=== PATIENT | female | born 1955 | race Caucasian/White ===

== ENCOUNTER 2024-02-07 16:49 | Outpatient (CLI) | payer OTHER, SELFPAY ==
--- NOTE | ~2024-02-07 | XR_ITS ---
EXAMINATION: XR_CERV2-3V_CR DATE: 02/07/2024 17:04 INDICATION: Spondylosis without myelopathy or radiculopathy. TECHNIQUE: 3 views of cervical spine were obtained. COMPARISON: None. FINDINGS: There is 7 degrees dextrocurvature of cervical spine. There is mild kyphosis of cervical sp ine. There is 2 mm anterolisthesis of C7 on T1. Vertebral body heights are normal. There is healed in terbody fusion at C5-C6. There is severely decreased disc height at C3-C4, C4-C5, C6-C7, and C7-T1. T here is multilevel severe facet joint osteoarthritis. There is mild central canal stenosis at C3-C4, C4-C5, C6-C7, and C7-T1. No prevertebral soft tissue swelling. IMPRESSION: 1. Severe cervical spondylosis. 2. Anterior fusion at C5-C6. Reviewed, dictated and finalized at location A.
== END 2024-02-07 16:50 | disposition home or self-care (01) ==
LOC: ANHIMG 16:51
PROVIDERS: PCP Family Medicine; Visit Provider Neurological Surgery
DX: M47.812 Spondylosis without myelopathy or radiculopathy, cervical region (principal); Z98.1 Arthrodesis status
CPT/HCPCS: 72040

== ENCOUNTER 2024-03-12 12:39 | Outpatient (CLI) | payer OTHER, SELFPAY ==
--- NOTE | 2024-03-12 12:48 | ECG_ITS ---
Test Date: 2024-03-12 13:08:09 Measurements Intervals [place] Rate: 56 P: 48 NE: 146 QRS: 75 QRSD: 82 T: 40 QT: 421 QTc: 410 Interpretive Statements SINUS BRADYCARDIA POSSIBLE RIGHT VENTRICULAR CONDUCTION DELAY BORDERLINE ST ABNORMALITY- INFERIOR LEADS BASELINE ARTIFACT- I, II, III, AVR, AVL, AVF, V1-V6 BORDERLINE ECG No previous ECG available for comparison Electronically Signed On 03-12-2024 13:50:29 BANKRUPTCY ASSISTANT by Shaw White D.O.
[2024-03-12 14:05] LABS: Hematocrit 39.6 % (37.0-47.0); Hemoglobin 13.2 g/dL (12.0-15.0); Mean Corpuscular HGB Conc 33.3 g/dl (32-36); Mean Corpuscular Hemoglobin 31.4 pg (26-34); Mean Corpuscular Volume 94.1 fl (80-100); Mean Platelet Volume 11.4 fl (7.4-10.4); Platelet Count Result 227 k/mm3 (150-375); Red Blood Count 4.21 M/mm3 (4.2-5.4); Red Cell Distribution Width 13.4 % (11.5-14.5); White Blood Count 7.9 K/mm3 (4.5-10.0)
[2024-03-12 14:16] LABS: Anion Gap 6 mmol/L (4-12); Blood Urea Nitrogen 9 mg/dL (7-17); Calcium 9.2 mg/dL (8.4-10.2); Carbon Dioxide 34 mmol/L (22-30); Chloride 99 mmol/L (98-107); Estimated Glomerular Filt Rate > 60; Glucose 96 mg/dL (65-110); Potassium 4.2 mmol/L (3.4-5.0); Sodium 139 mmol/L (137-145)
[2024-03-12 14:17] LABS: Prothrombin Time 13.3 Seconds (11.1-14.7)
[2024-03-12 14:22] LABS: Add Urine Microscopic? YES; Appearance Urine Clear (Clear); Bacteria Urine None Seen /hpf; Bilirubin Urine Negative (Negative); Blood Urine Negative (Negative); Color Urine Yellow (Yellow); Glucose Urine UA Negative (Negative); Ketones Urine Negative (Negative); Leukocyte Esterase Ur 2+ LEU/UL (Negative); Need Manual Microscopic Reviewed; Nitrate Urine Negative (Negative); Non Pathogenic Casts 0-2; Protein Urine Negative (Negative); RBC Urine 0-2 /hpf (0-2); Specific Grav Ur 1.004 (1.001-1.035); Squamous Epithelial Cell Urine None Seen /hpf (Few); Urobilinogen Urine 0.2 mg/dL (<2.0); WBC Urine 0-5 /hpf (0-3); pH Urine 7.5 (5.0-9.0)
== END 2024-03-12 12:40 | disposition home or self-care (01) ==
LOC: ANHSURGERY 12:44
PROVIDERS: PCP Family Medicine; Visit Provider Neurological Surgery
DX: Z01.818 Encounter for other preprocedural examination (principal); M47.812 Spondylosis without myelopathy or radiculopathy, cervical region; I10 Essential (primary) hypertension; R00.1 Bradycardia, unspecified; R94.31 Abnormal electrocardiogram [ECG] [EKG]
CPT/HCPCS: 36415; 80048; 81001; 85027; 85610; 85730; 86850; 86900; 86901; 87086; 93005

== ENCOUNTER 2024-03-17 03:27 | Day surgery (SDC) | payer OTHER, SELFPAY ==
--- NOTE | 2024-03-06 11:55 | PC.NURSE ---
Report to the Outpatient Waiting Room, entrance under the green pavilion located off [facility], at time _8:30 AM on date 03/17/24 . Planned Procedure Time: _10:30 AM .? Time changes happen often and if your time is changed the preop area will call you the afternoon before. - You and your visitor will be asked to self-screen and do not enter if you have any COVID symptoms. Please call surgeon if you need to reschedule. - A mask is optional within the hospital at this time. Patients may have clear liquids (water, carbonated beverages, clear teas, apple juice) until 3 hours prior to surgery( 7:30 AM) with a maximum of 20 ounces. - No food from midnight until time of surgery and no smoking - Infants may have breast milk until 4 hours before surgery, formula 6 hours prior to surgery. - Children will be allowed to drink immediately following surgery.? If applicable, please bring a bottle or sippy cup to assist with drinking. Juice, water, soda, and popsicles are readily available.? For infants on formula, please bring formula the day of surgery.? Pacifiers are allowed. Take only the following medications with a SIP of water on the morning of surgery: ATENOLOL,HYDROCODONE IF NEEDED FOR PAIN DO NOT STOP ANY OF YOUR OTHER PRESCRIPTION MEDICATIONS PRIOR TO SURGERY EXCEPT THE FOLLOWING Medications to discontinue per physician _ASPIRIN PER DR SANTOS . HOLD ALL VITAMINS AND SUPPLEMENTS 3 DAYS PRE OP.LAST DOSE03/13/24 Please no make-up, nail ugandan, hairspray, perfume, deodorant, or body powder the day of surgery.? No jewelry (including any body piercings) or valuables the day of surgery, leave them at home.? Please take a shower or bath the night before, or the morning of, surgery with an antibacterial soap.? Wear comfortable, loose fitting clothing.? Children are encouraged to wear pajamas. - Jewelry must be removed prior to entering the operating room.? Rings and piercings that are not removed may be cut off. - The hospital will not accept responsibility for valuables.? - Please leave all valuables, including medications, at home the day of surgery. If you are going home after surgery, a licensed funeral car driver must drive you home.? - NO public transportation without another adult if you receive anesthesia. - We recommend that an adult stay with you for 24 hours following discharge. - We also recommend that you do not drive, make important decision, drink alcoholic beverages, or take any drugs that were not prescribed by your health care provider for at least 24 hours after your discharge time Follow any additional instructions given to you from your surgeon. Telephone instructions given to __PATIENT and asked if any additional questions and then verbalized understanding. Patient advised to call surgeon office or pre surgery nurse liaison [phone] if any additional questions.
[2024-03-06 12:07] VITALS: BMI 23.4
[2024-03-17] VITALS (16 sets, daily range): BP systolic 112–157; BP diastolic 44–81; PULSE 55–73; RESP 12–20; TEMP 36.2–36.6; O2SAT 93–100
--- NOTE | ~2024-03-17 | XR_ITS ---
EXAMINATION: XR fluoroscopy no charge DATE: 03/17/2024 13:00 INDICATION: C3-C4 and C4-C5 anterior cervical discectomy and fusion TECHNIQUE: A single lateral fluoroscopic image of the cervical spine was obtained during procedure pe rformed by Dr. Dumont. Radiologist was not present for the imaging or procedure. The amount of fluo roscopy time used during this procedure was 0.1 minutes. COMPARISON: 02/07/2024 FINDINGS: Line C3-C4 and C4-C5 discectomies with interbody bone grafting with bone graft cages and an terior plate-screw fixation spanning both levels. There is a likely developmental anterior fusion at C5-C6. Likely endotracheal tube extends from the oral cavity into the lower cervical trachea and beyo nd the inferior margin of the byreo-on-jewg. Likely capture probe in the nasopharynx. IMPRESSION: 1. Fluoroscopy utilized during instrumented C3-C5 anterior spinal fusion. See procedure note for furt her detail. Reviewed, dictated and finalized at location B. TICS TEACHER IMPRESSION: 1. Fluoroscopy utilized during instrumented C3-C5 anterior spinal fusion. See p tracie note for further detail.
[2024-03-17] MEDS: LACTATED RINGERS 1,000 ML 30 ML IV CONT ×2 (09:00→13:10)
--- NOTE | 2024-03-17 10:48 | P.HP_ITS ---
H&P: HPI History of Present Illness Date/Time: 03/17/24 10:48 Chief Complaint: Neck and arm pain Narrative: Samanta is a 68-year-old female who has past medical history significant for a C5- 6 anterior cervical diskectomy and fusion done in the . She did well after that operation. She now has several year history of progressive pain in her neck radiating into her head and into her left upper extremity but only proximally. This discomfort is with her at all times seems to be worse with activity that involves the neck or upper extremities. She does not report specific muscle group weakness or dermatomal numbness. She has undergone an injection in her cervical spine which was not helpful. She has also participated in physical therapy which was not helpful. She is now limited, distracted and debilitated by her discomfort which times is quite severe. She is here to discuss definitive management of her problem. Review of Systems Review of Systems: All systems reviewed & are unremarkable except as noted in HPI and below Denies chills, Denies fever, Denies weight gain and Denies weight loss Eyes Denies change in vision and Denies diplopia ENT Denies disequilibrium Card Denies chest pain and Denies dyspnea Resp Denies cough and Denies dyspnea GI Denies abdominal pain, Denies change in bowel habits, Denies fecal incontinence and Denies vomiting Denies hematuria, Denies oliguria, Denies difficulty urinating, Denies dysuria, Denies urinary frequency, Denies urinary hesitancy, Denies urinary incontinence and Denies urinary urgency Musc Reports as per HPI Skin/ Breast Reports system reviewed and no additional complaints, except as documented Neuro Reports as per HPIPsych Reports no additional complaints, Denies depression and Denies hopelessness Endo Reports no additional complaints and Denies polyuria Stiven/ Lymph Reports no additional complaints Aller/ Immun Reports no additional complaints [facility] Social History Social History (Reviewed 01/21/24 @ 13:30 by Vane Pratt [facility]) Years smoked: 7 Smoking status: Former smoker Tobacco type: cigarettes Smoking end date: 05/06/89 Alcohol intake: never Substance use: never Substance use type: does not use Do You Feel Safe in your Home?: Yes Lack of Transportation: No Lack of Food: Never True Current Housing: I Have Housing Concerned About Future Housing: No Difficulty Paying Gas/Electric Bills: No Difficulty Paying for Meds: No Currently Unemployed: No Education: High School Diploma/GED Difficulty w/ Childcare or Family Care: No Living arrangements: alone Spiritual care concerns: No Meds Home Medications and Allergies Home Medications Medication Instructions Recorded Confirmed Type alendronate 70 mg tablet 70 mg PO WEEKLY 01/21/24 03/17/24 History aspirin 81 mg tablet,delayed 81 mg PO DAILY 01/21/24 03/06/24 History release (Adult Low Dose Aspirin) atenolol 50 mg tablet 50 mg PO DAILY 01/21/24 03/06/24 History atorvastatin 40 mg tablet 40 mg PO DAILY 01/21/24 03/06/24 History calcium carbonate-vitamin D3 500 1 tablet PO DAILY 01/21/24 03/17/24 History mg(1,250 mg)-600 unit chewable tablet chlorthalidone 25 mg tablet 25 mg PO DAILY 01/21/24 03/17/24 History famotidine 40 mg tablet 40 mg PO DAILY 01/21/24 03/17/24 History hydrocodone 10 mg-acetaminophen 1 tablet PO Q8H PRN Pain 01/21/24 03/17/24 History 325 mg tablet losartan 25 mg tablet 25 mg PO HS 01/21/24 03/17/24 History potassium chloride 20 mEq 20 meq PO DAILY 01/21/24 03/17/24 History tablet,extended release(part/cryst) vitamin no.180-ferrous 1 tablet PO DAILY 01/21/24 03/17/24 History fumarate 27 mg-folic acid 1 mg tablet ( Plus Vitamin-Mineral) rizatriptan 10 mg disintegrating 10 mg PO PRN PRN Headache 01/21/24 03/17/24 History tablet tizanidine 2 mg capsule 2 mg PO TID PRN MUSCLE RELAXER 01/21/24 03/06/24 History zolpidem 10 mg tablet 10 mg PO QHS 01/21/24 03/17/24 History Allergies Allergy/AdvReac Type Severity Reaction Status Date / Time ketorolac AdvReac Intermediate Palpitation Verified 03/06/24 11:41 s sumatriptan AdvReac Unknown Palpitation Verified 03/06/24 11:41 s gabapentin AdvReac Swelling Verified 03/06/24 11:42 Vital Signs Vital Signs - 24 hr 03/17/24 09:11 Temperature 97.3 F L Pulse Rate 55 L Respiratory Rate 20 Blood Pressure 135/47 L Pulse Oximetry 97 Oxygen Delivery Room Air Exam Narrative: General: cooperative, no acute distress, well developed, alert and awake Orientation/Consciousness: oriented to person, oriented to place and oriented to time Constitutional Limitations: no limitations Other: The patient is a normally developed, normal appearing male sitting on the examination table in no acute distress. He is awake, alert, and oriented x3 with good fund of knowledge, recall of events, and fluent speech. HENIA Head: normocephalic and atraumatic Ears: external ears normal Face/Nose/Sinus: Normal external nose present Eyes Eyelids: eyelids normal Pupils: Yes Pupils normal by confrontation EOM: EOMs intact bilaterally Neck General: Yes no meningeal signs, Yes supple and Yes no JVD Resp Effort/Inspection: normal respiratory effort and able to speak in complete sentences Cardio Rate: Yes regular rate GI Inspection: No abdominal distension Musc Other: Examination of the Neck reveals tenderness of the paraspinous musculature and the trapezius muscle left greater than right.. Range of motion of the Neck is limited in extension and left greater than right lateral rotation secondary to discomfort and stiffness.. Skin General: normal color Neuro General: Yes oriented to person, Yes oriented to place, Yes oriented to time, Yes normal cognition and Yes no meningeal signs Cranial Nerves: Yes CN's II-XII intact bilaterally Other: Motor: Strength is normal, 5/5, throughout all muscle groups of the bilateral upper extremities to direct confrontation. Sensory: Sensation is intact to light touch throughout the upper extremities bilaterally. Reflexes: Deep tendon reflexes are difficult to elicit the biceps, triceps and brachioradialis bilaterally. There is no Lynn's. Gait: Gait, station, and transfers are independent and steady for short periods of time and over short distances. Psych Appearance: grossly normal Mental status: Yes mental status grossly normal Mood: congruent mood Affect: Yes normal affect Speech/Movement: Normal speech and movement present Attitude: Yes cooperative Thought Content: Normal thought content Review of studies: MRI of the cervical spine was personally reviewed by me. This demonstrates a C5-6 anterior cervical diskectomy and fusion which appears stable. There is no anterior instrumentation. At C3-4 and C4-5 there is severe left greater than right foraminal stenosis. There is spondylosis at these levels as well. There is spondylosis at C2-3 as well. Assessment and Plan Assessment and plan (1) Foraminal stenosis of cervical region: Code(s): M48.02 - Spinal stenosis, cervical region Status: Acute (2) Cervical spondylosis: Code(s): M47.812 - Spondylosis without myelopathy or radiculopathy, cervical region Status: Acute Plan Samanta is a 68-year-old female with neck and left upper extremity discomfort related to the pathology is C3-4 and C4-5. I have recommended extending her fusion by way of anterior cervical diskectomy and fusion to those levels and described to her that operation, its risks, potential benefits, the operative and postoperative course in detail and answered all her questions personally. We discussed risks including but not limited to permanent neurologic or functional deficit related injury of the trachea, esophagus, carotid artery, jugular vein, recurrent laryngeal nerve, spinal cord or nerve roots, need for reoperation secondary to infection, bleeding, CSF leak, adjacent level disease, recurrent residual pathology, instability, malposition migration of the hardware or nonunion, failure of the procedure to relieve her pain or symptoms, persistent pain, medical complications related anesthesia or surgery, etc.. She indicates understanding and elects to proceed with that operation.
--- NOTE | 2024-03-17 10:50 | WPDHPUPDATE1 ---
History and Physical Update Update Date/Time: 03/17/24 10:50 History and Physical has been reviewed, including an updated exam of the patient. There are NO changes in the patient's condition. Risks, benefits, and alternatives have been discussed and questions answered. Patient agrees to proceed with procedure.
--- NOTE | 2024-03-17 11:16 | WPDANESEPPF ---
Anes - Initial Pre Proc Eval Procedure: Operation Date: 03/17/24 10:30 Proposed Procedures p C3-4 C4-5 Anterior Cervical Discectomy Fusion - Elton Dumont MD Date/Time: 03/17/24 11:16 Surgeon: Elton Dumont MD Pre Op Diagnosis: C3-4 C4-5 Spondylosis, Neuro Foraminal Narrowing Patient Data Age: 68 Gender: F Height: 1.47 m Weight: 50 kg Last Vital Signs Temp 97.3 F L 03/17/24 09:11 Pulse 55 L 03/17/24 09:11 Resp 20 03/17/24 09:11 BP 135/47 L 03/17/24 09:11 Pulse Ox 97 03/17/24 09:11 O2 Del Method Room Air 03/17/24 09:11 Allergies Allergy/AdvReac Type Severity Reaction Status Date / Time ketorolac AdvReac Intermediate Palpitation Verified 03/06/24 11:41 s sumatriptan AdvReac Unknown Palpitation Verified 03/06/24 11:41 s gabapentin AdvReac Swelling Verified 03/06/24 11:42 Home Medications Medication Instructions Recorded Confirmed Type alendronate 70 mg tablet 70 mg PO WEEKLY 01/21/24 03/17/24 History aspirin 81 mg tablet,delayed 81 mg PO DAILY 01/21/24 03/06/24 History release (Adult Low Dose Aspirin) atenolol 50 mg tablet 50 mg PO DAILY 01/21/24 03/06/24 History atorvastatin 40 mg tablet 40 mg PO DAILY 01/21/24 03/06/24 History calcium carbonate-vitamin D3 500 1 tablet PO DAILY 01/21/24 03/17/24 History mg(1,250 mg)-600 unit chewable tablet chlorthalidone 25 mg tablet 25 mg PO DAILY 01/21/24 03/17/24 History famotidine 40 mg tablet 40 mg PO DAILY 01/21/24 03/17/24 History hydrocodone 10 mg-acetaminophen 1 tablet PO Q8H PRN Pain 01/21/24 03/17/24 History 325 mg tablet losartan 25 mg tablet 25 mg PO HS 01/21/24 03/17/24 History potassium chloride 20 mEq 20 meq PO DAILY 01/21/24 03/17/24 History tablet,extended release(part/cryst) vitamin no.180-ferrous 1 tablet PO DAILY 01/21/24 03/17/24 History fumarate 27 mg-folic acid 1 mg tablet ( Plus Vitamin-Mineral) rizatriptan 10 mg disintegrating 10 mg PO PRN PRN Headache 01/21/24 03/17/24 History tablet tizanidine 2 mg capsule 2 mg PO TID PRN MUSCLE RELAXER 01/21/24 03/06/24 History zolpidem 10 mg tablet 10 mg PO QHS 01/21/24 03/17/24 History Patient hx anesthesia problems: none Family hx anesthesia problems: none Results Review: All pre-operative results and documents have been reviewed as part of the pre-operative evaluation. [facility] Social History Social History Years smoked: 7 Smoking status: Former smoker Tobacco type: cigarettes Smoking end date: 05/06/89 Alcohol intake: never Substance use: never Substance use type: does not use Do You Feel Safe in your Home?: Yes Lack of Transportation: No Lack of Food: Never True Current Housing: I Have Housing Concerned About Future Housing: No Difficulty Paying Gas/Electric Bills: No Difficulty Paying for Meds: No Currently Unemployed: No Education: High School Diploma/GED Difficulty w/ Childcare or Family Care: No Living arrangements: alone Spiritual care concerns: No Anes - Eval Final PreProcedure Day of Procedure 03/17/24 11:16 Patient weight: normal Heart: regular rate and rhythm Lungs: clear to auscultation Airway: Mallampati scale class III Neurological: alert and oriented Last oral intake: >/= 8 hours ASA classification: III Emergent: no Anesthetic plan: proceed Anesthesia type and monitoring: general ETT and standard monitoring Results Review: All pre-operative results and documents have been reviewed as part of the pre-operative evaluation. Informed Consent: The patient's anesthetic plan and its attendant risks and benefits were discussed with the patient/family/POA. Questions were solicited and answers provided to the satisfaction of the patient/family/POA.
[2024-03-17] MEDS: ceFAZolin 2 GM/D5W 50 ML 2 GM/50 ML BAG IVPB (11:23)
[2024-03-17] MEDS: LIDO 1%/EPINEPHRINE 1:100,000 50 ML VIAL 10 ML INFILTRATE (12:17)
[2024-03-17] MEDS: fentaNYL CITRATE INJ (*CRX) 100 MCG/2 ML VIAL 25 MCG IV PUSH ×8 (13:28→14:24)
[2024-03-17] MEDS: ONDANSETRON INJ 4 MG/2 ML VIAL IV PUSH ×2 (13:30→15:34)
--- NOTE | 2024-03-17 13:30 | P.OP_ITS ---
Procedure Note - Detailed Date of Procedure 03/17/24 Pre-op Diagnosis C3-4 C4-5 Spondylosis, Neuro Foraminal Narrowing Post-op Diagnosis Same Procedure Performed C3-4 and C4-5 complete diskectomy and bilateral foraminotomy, C3-4 and C4-5 interbody arthrodesis utilizing peek interbody devices, local autograft and I factor, C3-5 anterior cervical plating with locking plate and screws, use of the operating microscope Surgeon Elton Dumont MD Anesthesia General Description of Procedure Patient was brought to the operating room in supine position, was sedated, intubated placed under general anesthesia in routine fashion. The of operation on her neck was examined, marked for incision, prepped and draped in routine sterile fashion. Incision was marked from the midline over the medial aspect of the sternocleidomastoid muscle in curvilinear transverse fashion 3 fingerbreadths above the sternal notch. This area was injected with 0.5% lidocaine with [id number] epinephrine. Intravenous antibiotics given prior to incision. Incision was made with a 10 blade scalpel down to the platysma muscle. The skin was undermined the platysma muscle was divided longitudinally with its fibers using Metzenbaum scissors. A plane was then dissected medial to the sternocleidomastoid muscle and superior to the omohyoid muscle down to the anterior aspect of the spine. A verifying x-rays obtained to verify the level of operation. The longus colli muscle was dissected free of the anterior aspect of spine using Bovie cautery. Shadow [place] retractor system was placed. [place] pins were placed in C3 and C5 and distraction placed over both disc spaces simultaneously. Diskectomy and arthrodesis procedures were performed identically at each level. This was performed by entering the disc space using a 15 blade scalpel cutting along the margin of the bone above and below. A curved curette and pituitary rongeur were used to remove as much cartilaginous endplate and disc material as possible down to the annulus and ligament posteriorly. A Midas Gui drill was used to bur down the endplates to bleeding cortical flat surfaces as well as to begin a bony foraminotomy bilaterally. Under microscopy the annulus and ligament were interrupted using a curved curette and a 2. Kerrison punch was used to remove annulus, ligament, posterior osteophyte and to complete a bony foraminotomy bilaterally. This was done until a nerve hook could be placed out each foramen to confirm lack of compression. The disc spaces were then sized and 6 mm interbody devices were chosen and filled with a mixture of local autograft bone and I factor. These were then tamped into the interspace to 1-2 mm countersink. The anterior osteophytes removed using a Midas Gui drill. Anterior cervical plate was chosen placed in position and secured using 614 x 4 mm anterior screws advanced into the locking mechanism of the plate to hand tightness. Locking mechanism was then engaged with the appropriate screwdriver each screw. A verifying x-rays obtained to verify good position of the instrumentation which was confirmed. The wound was then copiously irrigated with bacitracin irrigation all bleeding stopped with bipolar Bovie cautery Gelfoam thrombin powder. Wound was then closed in layered fashion with 3-0 Vicryl interrupted sutures in the platysma muscle and dermis. The skin was closed with a running 4-0 Monocryl subcuticular stitch and dressed with Dermabond. The patient was allowed to wake up in the operating room was taken to the recovery room in stable condition. There were no immediate complications of this operation. All counts were reported correct at the end of the case. Blood loss was 25 cc. The patient was neurologically at her baseline postoperatively. CPT codes: 95461, 88193, 66025, 90507, 09229 Estimated Blood Loss 25 Complications None Condition Stable Disposition PACU [facility] Billing Surgery - Charge Forward: Surgery Billing
[2024-03-17] MEDS: diphenhydrAMINE HCl INJ 50 MG/ML VIAL 6.25 MG IV PUSH (13:41)
--- NOTE | 2024-03-17 15:20 | ADMGEN ---
This patient, Samanta Reeder, was admitted to Medical Room 244-. Patient/family oriented to hospital policies and general routines including ID bracelet, bed and alarms, visiting hours, pain management, procedures, bathroom and other care routines, personal items, smoking policy, room service/diet, and visiting hours. Information on how to activate the Rapid Response Team has been discussed. Patient/Family are encouraged to report perceived risks to care and to ask questions if they do not understand what they are told or what they should do.
[2024-03-17] MEDS: MORPHINE SULFATE (*CRX) 2 MG/ML INJ IV PUSH ×2 (15:35→20:12)
[2024-03-17] MEDS: KCL 20 MEQ/D5/0.45% SOD CHL 1,000 ML 100 ML IV CONT (15:36)
[2024-03-17] MEDS: HYDROcodone/acetaminophen (*CRX) 10-325 MG TABLET 1 TAB PO ×2 (16:50→20:57)
[2024-03-17] MEDS: LOSARTAN POTASSIUM 25 MG TABLET PO (21:31)
[2024-03-17] MEDS: DOCUSATE SODIUM 100 MG CAPSULE PO (21:31)
[2024-03-17] MEDS: HYDROcodone/acetaminophen (*CRX) 5-325 MG TABLET 1 TAB PO (23:38)
[2024-03-18] MEDS: HYDROcodone/acetaminophen (*CRX) 10-325 MG TABLET 1 TAB PO ×2 (01:22→08:49)
[2024-03-18 02:00] VITALS: BP 119/42; PULSE 62; RESP 16; TEMP 36.3; O2SAT 93
[2024-03-18 05:48] VITALS: BP 117/34; PULSE 60; RESP 20; TEMP 36.2; O2SAT 97
[2024-03-18 08:47] VITALS: PULSE 68
[2024-03-18] MEDS: atenoloL 50 MG TABLET PO (08:47)
[2024-03-18] MEDS: ASPIRIN 81 MG ENTERIC TABLET PO (08:48)
[2024-03-18] MEDS: CALCIUM/VITAMIN D 500 MG/5 MCG (200 I.U.) TABLET PO (08:48)
[2024-03-18] MEDS: DOCUSATE SODIUM 100 MG CAPSULE PO (08:48)
[2024-03-18] MEDS: FAMOTIDINE 20 MG TABLET 40 MG PO (08:48)
[2024-03-18] MEDS: MULTIVIT/MIN/PREN/FOL AC/IRON TABLET 1 TAB PO (08:48)
[2024-03-18] MEDS: POTASSIUM CHLORIDE 20 MEQ ER TABLET PO (08:49)
[2024-03-18] MEDS: ATORVASTATIN 40 MG TABLET PO (08:49)
[2024-03-18] MEDS: CHLORTHALIDONE 25 MG TABLET PO (08:49)
[2024-03-18 10:00] VITALS: BP 142/47; PULSE 67; RESP 18; TEMP 36.5; O2SAT 98
[2024-03-18] MEDS: ONDANSETRON INJ 4 MG/2 ML VIAL IV PUSH (10:44)
[2024-03-18] MEDS: RIZATRIPTAN BENZOATE 10 MG ODT PO (10:47)
[2024-03-18 14:00] VITALS: BP 142/47; PULSE 67; RESP 18; TEMP 36.5; O2SAT 98
--- NOTE | 2024-03-18 16:15 | WPDNEUROSGPN ---
Progress Note: A&P Assessment and Plan (1) Status post cervical arthrodesis: Code(s): Z98.1 - Arthrodesis status Status: Acute Plan -Discharge home today -Follow up with Dr. Dumont as scheduled next month Subjective Date/time seen: 03/18/24 16:15 Interval history: Doing well with some neck pain which is tolerable. Eating without difficulty. Ambulating and voiding independently. She has not noticed the arm pain she had prior to surgery. She would like to go home today. Review of Systems Review of Systems: All systems reviewed & are unremarkable except as noted in HPI and below Exam Narrative: AOx4 Incision c/d/i Full strength in arms and legs Sensation intact to light touch Objective Data Vital Signs Vital Signs: Vital Signs - 24 hr 03/17/24 17:00 03/17/24 20:27 03/18/24 02:00 Temperature 97.7 F 97.9 F 97.3 F L Pulse Rate 65 66 62 Respiratory Rate 16 16 16 Blood Pressure 112/44 L 129/44 L 119/42 L Pulse Oximetry 95 98 93 Oxygen Delivery 03/18/24 05:48 03/18/24 08:47 03/18/24 08:57 Temperature 97.1 F L Pulse Rate 60 68 Respiratory Rate 20 Blood Pressure 117/34 L Pulse Oximetry 97 Oxygen Delivery Room Air 03/18/24 09:06 03/18/24 10:00 03/18/24 14:00 Temperature 97.7 F 97.7 F Pulse Rate 67 67 Respiratory Rate 18 18 Blood Pressure 142/47 H 142/47 H Pulse Oximetry 98 98 Oxygen Delivery Room Air Intake/Output Intake/Output: Intake & Output 03/15/24 03/16/24 03/17/24 03/18/24 23:59 23:59 23:59 23:59 Intake Total 1930 740 Output Total 1100 1100 Balance 830 -360 Meds/Results Medications: Active Medications Generic Name Dose Route Start Last Admin Trade Name Freq PRN Reason Stop Dose Admin Hydrocodone Bitart/Acetaminophen 1 tab 03/17/24 14:47 03/17/24 23:38 Hydrocodone/Acetaminophen (*Crx) 5-325 Mg Tablet PO 1 tab Q4H PRN Administration Mild Pain (1-3) Hydrocodone Bitart/Acetaminophen 1 tab 03/17/24 14:47 03/18/24 08:49 Hydrocodone/Acetaminophen (*Crx) 10-325 Mg Tablet PO 1 tab Q4H PRN Administration Moderate Pain (4-6) Al Hydrox/Mg Hydrox/Simethicone 20 ml 03/17/24 14:47 Mag Hydrox/Al Hydrox/Simeth 30 Ml Udc PO Q4H PRN Indigestion/Heartburn Alendronate Sodium 70 mg 03/22/24 06:30 Alendronate Sodium 70 Mg Tablet PO Bello@0630 [facility] Aspirin 81 mg 03/18/24 09:00 03/18/24 08:48 Aspirin 81 Mg Enteric Tablet PO 81 mg DAILY [facility] Administration Atenolol 50 mg 03/18/24 09:00 03/18/24 08:47 Atenolol 50 Mg Tablet PO 50 mg DAILY [facility] Administration Atorvastatin Calcium 40 mg 03/18/24 09:00 03/18/24 08:49 Atorvastatin 40 Mg Tablet PO 40 mg DAILY [facility] Administration Bisacodyl 10 mg 03/17/24 14:47 Bisacodyl 10 Mg Suppository RECTAL DAILY PRN Constipation Calcium Carbonate 500 mg 03/18/24 09:00 03/18/24 08:48 Calcium/Vitamin D 500 Mg/5 Mcg (200 I.U.) Tablet PO 500 mg DAILY [facility] Administration Chlorthalidone 25 mg 03/18/24 09:00 03/18/24 08:49 Chlorthalidone 25 Mg Tablet PO 25 mg DAILY [facility] Administration Docusate Sodium 100 mg 03/17/24 21:00 03/18/24 08:48 Docusate Sodium 100 Mg Capsule PO 100 mg Q12HR [facility] Administration Famotidine 40 mg 03/18/24 09:00 03/18/24 08:48 Famotidine 20 Mg Tablet PO 40 mg DAILY [facility] Administration Potassium Chloride/Dextrose/Sod Cl 1,000 mls @ 100 mls/hr 03/17/24 14:47 03/17/24 21:00 Kcl 20 Meq/D5/0.45% Sod Chl IV CONT 30 mls/hr .Q10H [facility] Infusion Losartan Potassium 25 mg 03/17/24 21:00 03/17/24 21:31 Losartan Potassium 25 Mg Tablet PO 25 mg HS [facility] Administration Morphine Sulfate 2 mg 03/17/24 14:47 03/17/24 20:12 Morphine Sulfate (*Crx) 2 Mg/Ml Inj IV PUSH 2 mg Q2H PRN Administration Pain Rated 7-10 Ondansetron HCl 4 mg 03/17/24 14:47 03/18/24 10:44 Ondansetron Inj 4 Mg/2 Ml Vial IV PUSH 4 mg Q8H PRN Administration Nausea And Vomiting Potassium Chloride 20 meq 03/18/24 09:00 03/18/24 08:49 Potassium Chloride 20 Meq Er Tablet PO 20 meq DAILY [facility] Administration Vit/Calcium/Iron/Folic Ac 1 tab 03/18/24 09:00 03/18/24 08:48 Multivit/Min/Pren/Fol Ac/Iron Tablet PO 1 tab DAILY [facility] Administration Rizatriptan Benzoate 10 mg 03/17/24 15:24 03/18/24 10:47 Rizatriptan Benzoate 10 Mg Odt PO 10 mg PRN PRN Administration Headache Senna/Docusate Sodium 1 tab 03/17/24 14:47 Senna/Docusate Sodium Tablet PO HS PRN Constipation Zolpidem Tartrate 10 mg 03/17/24 21:00 03/18/24 01:26 Zolpidem Tartrate (*Crx) 5 Mg Tablet PO Not Given QHS [facility] Radiology Results: ITS Impressions Fluoroscopy 03/17/24 13:20 IMPRESSION: 1. Fluoroscopy utilized during instrumented C3-C5 anterior spinal fusion. See procedure note for further detail.
== END 2024-03-18 17:26 | disposition home or self-care (01) ==
LOC: ANHSURGERY 13:42 → ANH2MED 14:54
PROVIDERS: PCP Family Medicine; Visit Provider Neurological Surgery
PROC: (CPT 63030; principal; 2024-03-17 10:30)
DX: M47.812 Spondylosis without myelopathy or radiculopathy, cervical region (principal); M48.02 Spinal stenosis, cervical region; Z87.891 Personal history of nicotine dependence
CPT/HCPCS: 22551; 22552; 22853 ×2; 20936; 97161; 97165; 97530; 97535; 99199; A9270; C1713; J0690; J1100; J1171; J1200; J2003; J2004; J2270; J2405; J2704; J3010; J3480; J7120

== ENCOUNTER 2024-08-09 13:17 | Outpatient (CLI) | payer OTHER, SELFPAY ==
--- NOTE | ~2024-08-09 | MR_ITS ---
MRI of the lumbar spine Clinical History: Radiculopathy Technique: Axial T2-weighted images, and sagittal T1-weighted, T2-weighted, and and T2 fat-sat images were acquired. Findings: There is no fracture or subluxation of the lumbar spine. There is mild dextroscoliosis. No suspicious bone marrow signal abnormality seen. At L1-L2, there is no disc bulge or herniation. No spinal canal stenosis or neural foraminal narrowin g. At L2-L3, there is no disc bulge or herniation. No spinal canal stenosis or neural foraminal narrowin g. At L3-L4, there is mild degenerative disc narrowing. There is minimal disc bulge with advanced facet arthropathy. No central canal stenosis. There is severe left neural foraminal narrowing, and mild rig ht neural foraminal narrowing. At L4-L5, there is mild disc bulge with moderate to advanced facet arthropathy. No central canal sten osis. There is advanced right neural foraminal narrowing, and moderate left neural foraminal narrowin g. At L5-S1, there is mild disc bulge with moderate to advanced facet arthropathy. No central canal sten osis. There is severe right neural foraminal narrowing, and moderate left neural foraminal narrowing. Paravertebral soft tissues are unremarkable. Impression: Moderate degenerative spondylosis, with significant neural foraminal narrowing at L3-L4, L4-L5, L5-S1 . Please see details above. Reviewed, dictated and finalized at [facility]. Impression: Moderate degenerative spondylosis, with significant neural foraminal narrowing at L3-L4, L4-L5, L5-S1. Please see details above.
--- OUTSIDE RECORDS SUMMARY | 2024-08-09 13:22 | XMS_ITS | Encounter Summary ---
Author Organization [facility] Healthcare Address [address] [place] [address] Care Team Providers Care Cnc Operator Programmer Name Role Phone Santos Wang MD Primary Care Provider + Reason for Visit * Reason Onset Date Comments Appointment Request 08/06/2024 Encounter Details Date Type Department Care Team ([facility] Contact Info) Description 08/06/2024 Telephone [facility] Medical Group Primary Care at [address] [place] [address] Santos Wang MD [address] [place] [address] [address] [place] [address] Appointment Request Social History Tobacco Use Types Packs/Day Years Used Date Smoking Tobacco: Former Cigarettes Q uit: 10/10/1990 Smokeless Tobacco: Never Alcohol Use Standard Drinks/Week Comments No 0 (1 standard drink = 0.6 oz pur e alcohol) Social Connection and Isolat ion Panel [NHANES] Answer Date Recorded In a typical week, how many times do you talk on the phone with family, friends, or neighbors? More than three times a week 10/22/2022 How often do you get togethe r with friends or relatives? More than three times a week 10/22/2022 How often do you attend chur ch or nondenominational services? More than 4 times per year 10/22/2022 Do you belong to any clubs o r organizations such as alevism groups, unions, fraternal or athletic groups, or school groups? Yes 10/22/2022 How often do you attend meet ings of the clubs or organizations you belong to? More than 4 times per year 10/22/2022 Are you , , di vorced, , never , or living with a partner? Never 10/22/2022 AUDIT-C Answer Date Recorded Q1: How often do you have a drink containing alcohol? Never 10/01/2023 Q2: How many drinks containi ng alcohol do you have on a typical day when you are drinking? Patient does not drink Q3: How often do you have si x or more drinks on one occasion? Never 10/01/2023 Overall Financial Resource Strain (CARDIA) Answe r Date Recorded How hard is it for you to pa y for the very basics like food, housing, medical care, and heating? Not very hard 10/22/2022 PHQ-2 Answer Date Recorded PHQ-2 Total Score (If total score is 3 or more points, staff should administer the PHQ-9) 0 07/23/2024 PRAPARE - Transportation Answer Date Re corded In the past 12 months, has l ack of transportation kept you from medical appointments or from getting medications? No 10/04 In the past 12 months, has l ack of transportation kept you from meetings, work, or from getting things needed for daily living? No 10/22/2022 Housing Stability Vital Sign Answer Chun e Recorded In the last 12 months, was t here a time when you were not able to pay the mortgage or rent on time? No 10/22/2022 In the last 12 months, how many places have you lived? 1 10/22/2022 In the last 12 months, was t here a time when you did not have a steady place to sleep or slept in a prison (including now)? No 10/22/2022 Personal Safety Answer Date Recorded Have you ever been in or are you currently in a harmful physical or emotional relationship or is someone making you feel afraid or unsafe? Denies 09/23/2023 Comments No Sex and Gender Information Value Date Recorded Sex Assigned at Not on file Legal Sex Female 3:17 PM CLINICAL DATA COORDINATOR Gender Identity Not on file Sexual Orientation Not on file documented as of this encounter Miscellaneous Notes * Telephone Encounter - Isi Dudley MA - 08/07/2024 1:30 PM CDT Lvm. * Telephone Encounter - Iona Miller - 08/06/2024 1:52 PM CDT Appointment Request What visit type does the patient need? Visit Type: Established Patient What is the reason for the visit? discuss increase of her migraines and possible change in treatment What is the reason we were unable to schedule the appointment? Current appointment availability didnot meet patient's need. If applicable, were all members of the patient's PCP care team offered (e.g., nurse practioner(s), physician bilingual legal assistant(s)) ? N/A Additional Comments: [facility]'s first opening was September. She would like to be seen before then. Does message need to be routed? Yes-Action Needed documented in this encounter Plan of Treatment Not on file documented as of this encounter Goals Goal Patient Goal Type Associated Problems Recent Progress Patient-Stated? Author BH-Pain Behavioral Health Improving( 11:33 AM CLINICAL DATA COORDINATOR) Sara Rodriguez, STACEY Note: Patient will establish a comfort-function goal and identify the pain level that will allow the patient to perform desired activities and achieve an acceptable quality of life. documented as of this encounter Visit Diagnoses Not on filedocumented in this encounter Care Teams Cnc Operator Programmer Relationship Specialty Start Date End Date Santos Wang MD [address] [place] [address] PCP - General Family Medicine 07/02/24 documented as of this encounter
--- OUTSIDE RECORDS SUMMARY | 2024-08-09 13:22 | XMS_ITS | Encounter Summary ---
Author Organization [facility] Healthcare Address [address] [place] [address] Care Team Providers Care Design Cell Engineer Name Role Phone Santos Wang MD Primary Care Provider + Encounter Details Date Type Department Care Team (Late Contact Info) Description 07/05/2024 Results Follow-Up [facility] Medical Group Primary Care at [address] [place] [address] Santos Wang MD [address] [place] [address] [address] [place] [address] Social History Tobacco Use Types Packs/Day Years [...] often do you attend chur ch or jehovah's witness services? More than 4 times per year 10/22/2022 Do you belong to any clubs o r organizations such as hinduism groups, unions, fraternal or athletic groups, or [...] points, staff should administer the PHQ-9) 0 07/03/2024 PRAPARE - Transportation Answer Date Re corded [...] place to sleep or slept in a snf (including now)? No 10/22/2022 Personal Safety Answer Date Recorded Have you ever been in or are you currently in a harmful physical or emotional relationship or is someone making you feel afraid or unsafe? Denies 09/23/2023 Comments No Sex and Gender Information Value Date Recorded Sex Assigned at Not on file Legal Sex Female 3:17 PM LINEN TECH Gender Identity Not on file Sexual Orientation Not on file documented as of this encounter Miscellaneous Notes * Result Encounter Note - Isi Dudley MA - 07/14/2024 9:29 AM CDT Sent patient message through [employer]. * Result Encounter Note - Isi Dudley MA - 07/06/2024 9:55 AM CST [facility]. N TECH * Result Encounter Note - Santos Wang MD - 07/05/2024 10:34 AM LINEN TECH Please make a follow-up appointment with patient to discuss her increasing A1c. It is now at 6.3. Diabetes starts at 6.5. This is up from 5.9 which has been stable for the last 2 years. Will look to see her as a follow-up video appointment at her convenience this is not urgent. N TECH documented in this encounter Plan of Treatment Not on file documented as of this encounter Goals Goal Patient Goal Type Associated Problems Recent Progress Patient-Stated? Author BH-Pain Behavioral Health Improving( 11:33 AM LINEN TECH) Sara Rodriguez RN Note: Patient will establish a comfort-function goal and identify the pain level that will allow the patient to perform desired activities and achieve an acceptable quality of life. documented as of this encounter Visit Diagnoses Not on filedocumented in this encounter Care Teams Design Cell Engineer Relationship Specialty Start Date End Date Santos Wang MD [address] [address] PCP - General Family Medicine 07/02/24 documented as of this encounter
--- OUTSIDE RECORDS SUMMARY | 2024-08-09 13:22 | XMS_ITS | Clinical Summary ---
Author Organization [facility] Address [address] [place] [address] Phone Care Team Providers Care Clinical Engineering Manager Name Role Phone Avery Schaefer MD Primary Care Provider [phone] Social History Tobacco Use Types Packs/Day Years Used Date Smoking Tobacco: Never Assessed Comments Unknown Sex and Gender Information Value Date Recorded Sex Assigned at Not on file Legal Sex Female 9:03 PM CDT Gender Identity Not on file Sexual Orientation Not on file Plan of Treatment Not on file Insurance MEDICARE Care Teams Clinical Engineering Manager Relationship Specialty Start Date End Date Avery Schaefer MD [address] [place] [address] [place] [address] PCP - General Family Medicine 04/27/15
--- OUTSIDE RECORDS SUMMARY | 2024-08-09 13:22 | XMS_ITS | Continuity of Care Document ---
Author Organization [facility] Address [address] [place] [address] Phone Care Team Providers Care Fire Hose Curer Name Role Phone Pola Mathew MD Unavailable Unavailable Procedures Procedure Date INJECTION ANESTHETIC AND/OR STERIOD, TRANS EPIDURAL LUMB OR SACRAL,, SINGLE LEVE SURGICAL TRAY LOW OSMOLAR CONTRAST (200 TO 299 MG IODI NE) DEPO-MEDROL 80MG INJECTION ANESTHETIC AND/OR STERIOD, TRANS EPIDURAL LUMB OR SACRAL,, SINGLE LEVE SURGICAL TRAY LOW OSMOLAR CONTRAST (200 TO 299 MG IODI NE) DEPO-MEDROL 80MG X-RAY LUMBAR SPINE, COMPLETE Advance Directives Directive Yes / No Effective Date File Name No Information Encounters Encounter Description Practice Location Reason(s) For Visit Diagnoses Date Provider Providers [facility] [address], [place], [place], [id number], tel:[phone] [facility] No Information Quincy Escalona. [address], [place], [place], [id number], [place]. tel:[phone] Referring Provider: Paul Agrawal MD, [address] [place] [address], [address]. tel:[phone] [facility] [address] [facility], [address], [place], [place], [id number], [place] tel:[phone] [facility] No Information Bridgette Saxena. [address], [place], [place], [id number], [place]. tel:[phone] Referring Provider: Paul Agrawal MD, [address] [place], [address]. tel:[phone] [facility], [address], [place], [place], [id number], [place] tel:[phone] [facility] No Information Radha Escalona. [address] , [place], [place], [id number], [place]. tel:[phone] Referring Provider: Paul Agrawal MD, [address] [place], [address]. tel:[phone] Family History Family Member Type Diagnosis Age At Onset No Information Payers Payer name Insurance type Covered democrat ID Roverto lambert(s) [facility] [id number] Social History Type Description Quantity Date Captured Comments Sex Female Smoking Status No Information Chief Complaint And Reason For Visit No Information Reason For Referral Reason For Referral No Information History Of Present Illness Encounter Date Complaint History Of Prese nt Illness No Information Functional Status Date Functional Assessmen t No Information Instructions Date Instruction Additional Infor mation No Information Assessments Type Assessment Date No Information Patient Care Teams Name Effective Dates (start - stop) Status Members No Information
--- OUTSIDE RECORDS SUMMARY | 2024-08-09 13:23 | XMS_ITS | Clinical Summary ---
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 Recombina nt, Subunit, Adjuvanted, PF, IM (Arexvy) 03/25/2023 Tdap 10/24/2019,02/08/2017,02/02/2015 ZOSTER Recombinant 03/24/2022,10/06/2021 Surgical History Surgery Date Site/Laterality Comments PARTIAL HYSTERECTOMY 05/06/1985 - 05/05/1986 partial hysterectomy NECK SURGERY neck surgery APPENDECTOMY 05/06/1980 - 05/05/1981 Appendectomy SHOULDER ARTHROSCOPY Arthroscopy shoulder HYSTERECTOMY partial 1985 FLUORO GUIDED INJECTION HIP RIGHT 10/09/2022 Right ROTATOR CUFF REPAIR Right Right Shoulder Medical History Medical History Date Comments Hypertension Hypertension Hyperlipidemia Hyperlipidemia Migraine Neck pain Mitral valve prolapse Family History Medical History Relation Name Comments Cancer Brother COPD Father COPD; Migraines Father Heart disease Mother Hypertension Mother Hypertension; Arthritis Other Blood Clot Other Cancer Other Heart disease Other Kidney disease Other Breast cancer Sister Cancer Sister Stroke Sister Relation Name Status Comments Brother Father Mother Other Sister Alive Social History Tobacco Use Types Packs/Day Years Used Date Smoking Tobacco: Former Cigarettes Q uit: 10/10/1990 Smokeless Tobacco: Never Tobacco Cessation:Counseling Given: Not Answered Alcohol Use Standard Drinks/Week Comments No 0 [...] often do you attend chur ch or advent services? More than 4 times per year 10/22/2022 Do you belong to any clubs o r organizations such as jainism groups, unions, fraternal or athletic groups, or [...] place to sleep or slept in a skilled nursing (including now)? No 10/22/2022 Personal Safety Answer Date Recorded Have you ever been in or are you currently in a harmful physical or emotional relationship or is someone making you feel afraid or unsafe? Denies 09/23/2023 Comments No Sex and Gender Information Value Date Recorded Sex Assigned at Not on file Legal Sex Female 3:17 PM [facility] Gender Identity Not on file Sexual Orientation Not on file Obstetrics History Para Term AB IAB SAB Ectopic Multiple Livin g Live Births 1 1 1 1 Date Outcome GA Total Labor Labor/3rd Weight Sex Type Anes PTL Nicole A1 A5 Name Clin Term 2.807 kg (6 lb 3 oz) M Vag-S pont Living Last Filed Vital Signs Vital Sign Reading Time Taken Comments Blood Pressure 114/64 07/23/2024 9:23 AM CDT Pulse 54 07/23/2024 9:23 AM CDT Temperature 36.6 C (97.9 F) 07/03/2024 1:20 PM [facility] Respiratory Rate 16 01/23/2024 10:39 AM CDT Oxygen Saturation 98% 07/23/2024 9:23 AM CDT Inhaled Oxygen Concentration - - Weight 49.9 kg (110 lb) 07/23/2024 9:23 AM CDT Height 152.4 cm (5') 07/23/2024 9:23 AM CDT Body Mass Index 21.48 07/23/2024 9:23 AM CDT Plan of Treatment Health Maintenance Due Date Last Done Comments Covid-19 Vaccine (2023-2 5 season) 2024 03/11/2023, 04/17/2021, 08/12/2020 Osteoporosis Screening-Bone Density Scan 07/02/2024 07/02/2022, 07/01/2020 Fall Risk Assessment 01/14/2025 01/15/2024, 10/15/2023, 10/01/2023, Additional history exists Breast Cancer Screening-Mammogram 03/05/2025 03/05/2024, 01/30/2023, 12/22/2021, Additional history exists Well Visit 65+ 07/03/2025 07/03/2024, 07/04, 05/15/2022 Depression Screening 07/23/2025 07/23/2024, 07/03/2024, 01/15/2024, Additional history exists Colon Cancer Screening-Colonoscopy 05/24/2026 05/24/2016, 05/24/2016, 05/24/2016 DTaP/Tdap/Td Vaccine (4 - Td or Tdap) 10/23/2029 10/24/2019, 02/08/2017, 02/02/2015 Colon Cancer Screening-CT Colonography Discontinued 05/24/2016, 05/24/2016, 05/24/2016 Colon Cancer Screening-DNA Stool Discontinued 05/24/2016, 05/24/2016, 05/24/2016 Colon Cancer Screening-FIT Discontinued 05/24, 05/24/2016, 05/24/2016 Colon Cancer Screening-Sigmoidoscopy Discontinued 05/24/2016, 05/24/2016, 05/24/2016 Hepatitis C Screening Completed 03/20/2017 Zoster Vaccine Completed 03/24/2022, 10/06/2021 Pneumococcal vaccine 65+ Completed 023, 10/06/2021, 02/24/2018, Additional history exists Influenza Vaccine Completed 01/15/2024, , 02/03/2022, Additional history exists Hepatitis B Screening Completed 07/03/2024 Goals Goal Patient Goal Type Associated Problems Recent Progress Patient-Stated? Author BH-Pain Behavioral Health Improving( 11:33 AM [facility]) Sara Rodriguez RN Note: Patient will establish a comfort-function goal and identify the pain level that will allow the patient to perform desired activities and achieve an acceptable quality of life. Procedures Procedure Name Priority Date/Time Associated Diagnosis Comments HEPATITIS B SURFACE ANTIBODY (IMMUNE STATUS) Routine 07/03/2024 7:10 PM [facility] Need for hepatitis B screening test HEPATITIS B SURFACE ANTIGEN Routine 07/03/2024 7:10 PM [facility] Need for hepatitis B screening test EGFR Routine 07/03/2024 1:58 PM [facility] Annual physical exam CBC WITHOUT DIFFERENTIAL Routine 07/03/2024 1:58 PM [facility] Annual physical exam COMPREHENSIVE METABOLIC PANEL Routine 07/03/2024 1:58 PM [facility] Annual physical exam LIPID PANEL Routine 07/03/2024 1:58 PM [facility] Annual physical exam THYROID FUNCTION CASCADE Routine 07/03/2024 1:58 PM [facility] Annual physical exam HEMOGLOBIN A1C Routine 07/03/2024 1:58 PM [facility] Annual physical exam HEPATITIS B CORE ANTIBODY, TOTAL Routine 07/03/2024 1:58 PM [facility] Need for hepatitis B screening test SCREENING MAMMOGRAM BILATERAL W EFRAIN Schedule Routine, Read Routine (OP Routine) 03/05/2024 3:36 PM CDT Screening mammogram for breast cancer DEXA AXIAL SKELETON BONE DENSITY 1 OR MORE SITES Schedule Routine, Read Routine (OP Routine) 07/02/2022 11:02 AM [facility] Other specified disorders of bone density and structure, multiple sites HEPATITIS C ANTIBODY Routine 03/20/2017 3:22 PM [facility] Encounter for hepatitis C screening test for low risk patient COLONOSCOPY IMAGES 05/24/2016 from Last 3 Months or Most Recently Relevant to Health Maintenance Results * Hepatitis B surface antibody (immune status) Blood (07/03/2024 7:10 PM [facility]) HBsAb (immune status) Nonreactive Comment: Interpretive Data Nonreactive: This result is consistent with a lack of immunity to Hepatitis B Virus when used in the setting of routine screening. Equivocal: The immune status of the individual should be further assessed, if appropriate, after consideration of clinical status, risk factors, and additional diagnostic information. Reactive: This result is consistent with immunity to Hepatitis B Virus when used in the setting of routine screening. Current interpretive data was last revised on 19. Blood 07/03/2024 7:10 PM [facility] 07/03/2024 7:10 PM [facility] Santos Wang MD LAB MICROBIOLOGY - GENER AL ORDERABLES Final Result Performing Organization Address [facility] Co de Phone Number ILA OTBAR [address] [address] [facility] [place] [address] * Hepatitis B Surface Antigen Blood (07/03/2024 7:10 PM [facility]) HepBsAg Nonreactive Nonreactive Blood 07/03/2024 7:10 PM [facility] 07/03/2024 7:10 PM [facility] Santos Wang MD LAB MICROBIOLOGY - GENER AL ORDERABLES Final Result Performing Organization Address [facility] Phone Number ILA TOBAR [address] [address] [facility] [place] [address] * eGFR (07/03/2024 1:58 PM [facility]) eGFR 86 >=60 mL/min/1. 73 m2 Comment: Interpretive Data Reference Interval Normal >/= 90 mL/min/1.73m2 Mildly decreased* 60 - 89 mL/min/1.73m2 Mildly to moderately decreased 45 - 59 mL/min/1.73m2 Moderately to severely decreased 30 - 44 mL/min/1.73m2 Severely decreased 15 - 29 mL/min/1.73m2 Kidney Failure < 15 mL/min/1.73m2 *Relative to young adult level Estimated glomerular filtration rate is determined by the 2020 CKD-EPI equation recommended by the National Kidney Foundation (A Unifying Approach to GFR Estimation: Recommendations of the NKF-ASK Task Force on Reassessing the Inclusion of Race in Diagnosing Kidney Disease, JASN 2020). The CKD-EPI equation should not be used for patients with unstable renal function and has not been validated in children and those over 70. Current interpretive data was last reviewed 2021. Blood 07/03/2024 1:58 PM [facility] 07/03/2024 7:09 PM [facility] Santos Wang MD LAB BLOOD ORDERABLES Fin al Result Performing Organization Address [facility] Co de Phone Number ILA TOBAR [address] [address] [facility] [place] [address] * Thyroid Function [facility] (07/03/2024 1:58 PM [facility]) Pathologist [facility] TSH 1.22 0.30 - 4.20 mcIUnit/mL Blood 07/03/2024 1:58 PM [facility] 07/03/2024 7:04 PM [facility] Santos Wang MD LAB BLOOD ORDERABLES Fin al Result Performing Organization Address [facility] de Phone Number ILA TOBAR [address] [address] [facility] [place] [address] * Hepatitis B core antibody, total Blood (07/03/2024 1:58 PM [facility]) Pathologist [facility] Hep B core IgG/IgM Nonreactive Nonreactive Comment:Testing performed by : [facility], [address] [place] [address] Blood 07/03/2024 1:58 PM [facility] 07/04/2024 12:38 AM [facility] Santos Wang MD LAB MICROBIOLOGY - GENER AL ORDERABLES Final Result Performing Organization Address [facility] de Phone Number ILA TOBAR [address] [place] [address] * CBC without differential (07/03/2024 1:58 PM [facility]) WBC 8.9 3.8 - 9.9 K/cumm Hgb 13.9 11.9 - 15.5 g/dL [facility] Hct 42.5 35.6 - 45.5 % [facility] Plt 291 150 - 400 K/cumm [facility] MPV 10.9 9.1 - 12.3 fL [facility] RBC 4.65 3.90 - 5.20 M/cumm [facility] MCV 91.4 81.3 - 96.4 fL [facility] MCH 29.9 27.1 - 33.3 pg [facility] MCHC 32.7 32.3 - 35.7 g/dL [facility] RDW CV 12.8 11.1 - 14.9 % [facility] RDW SD 42.8 35.7 - 48.1 fL [facility] NRBC abs 0.00 0.00 - 0.01 K/cumm [facility] Blood 07/03/2024 1:58 PM [facility] 07/03/2024 7:04 PM [facility] Santos Wang MD LAB BLOOD ORDERABLES Fin al Result Performing Organization Address [facility] de Phone Number [facility] [address] [place] [address] * (ABNORMAL) Hemoglobin A1c (07/03/2024 1:58 PM [facility]) Hgb A1C 6.3(H) 4.0 - 5.6 % Estimated Average Glucose 134 mg/dL [facility] Comment: The ADA recommends reporting an estimated Average Glucose (eAG) with all Hemoglobin A1c results using the equation derived from a study of 507 normal and diabetic adults. Minority populations were underrepresented and children were not included. (Diabetes Care 31:3120-3856, 2008). The eAG is not equivalent to a fasting glucose. Blood 07/03/2024 1:58 PM [facility] 07/03/2024 7:04 PM [facility] Santos Wang MD LAB BLOOD ORDERABLES Fin al Result Performing Organization Address [facility] Co de Phone Number [facility] [address] [place] [address] * Lipid panel (07/03/2024 1:58 PM [facility]) Cholesterol 147 30 - 199 mg/dL Comment: Interpretive Data Ages < or = 19 years Acceptable: <170 mg/dL Borderline high: 170-199 mg/dL High: >or= 200 mg/dL Ages > or = 20 years Desirable: <200 mg/dL Borderline high: 200-239 mg/dL High: >or= 240 mg/dL Literature References: 1. Expert Panel on Integrated Guidelines for Cardiovascular Health and Risk Reduction in Children and Adolescents. Pediatrics 2011;128:S213 2. NCEP Expert Panel. Circulation 2004;110:227 Current Interpretive Data was last revised on 2017. Triglycerides 59 <=149 mg/dL [facility] Comment: Interpretive Data Ages < or = 9 years Acceptable: <75 mg/dL Borderline high: 75-99 mg/dL High: >or= 100 mg/dL Ages 10 to 20 years Acceptable: <90 mg/dL Borderline high: 90-129 mg/dL High: >or= 130 mg/dL Ages > or = 20 years Desirable: <150 mg/dL Borderline high: 150-199 mg/dL High: 200-499 mg/dL Very high: >or= 499 mg/dL Literature References: 1. Expert Panel on Integrated Guidelines for Cardiovascular Health and Risk Reduction in Children and Adolescents. Pediatrics 2011;128:S213 2. NCEP Expert Panel. Circulation 2004;110:227 Current Interpretive Data was last revised on 2017. HDL 77 >=40 mg/dL [facility] Comment: Interpretive Data Ages < or = 19 years Acceptable: >45 mg/dL Borderline low: 40-45 mg/dL Low: <40 mg/dL Ages > or = 20 years Desirable: >or= 60 mg/dL Low: <40 mg/dL Literature References: 1. Expert Panel on Integrated Guidelines for Cardiovascular Health and Risk Reduction in Children and Adolescents. Pediatrics 2011;128:S213 2. NCEP Expert Panel. Circulation 2003;110:227 Current Interpretive Data was last revised on 2017. LDL, calculated 58 <=129 mg/dL [facility] Comment: Interpretive Data Ages < or = 19 years Acceptable: <110 mg/dL Borderline high: 110-129 mg/dL High: >or= 130 mg/dL Ages > or = 20 years Optimal: <100 mg/dL Near optimal: 100-129 mg/dL Borderline high: 130-159 mg/dL High: >160 mg/dL Calculated using the Mohr LDL-C estimating equation. This equation was implemented on 2023. Prior to this date LDL-C was estimated using the Friedewald equation. Literature References: 1. Expert Panel on Integrated Guidelines for Cardiovascular Health and Risk Reduction in Children and Adolescents. Pediatrics 2011;128:S213 2. NCEP Expert Panel. Circulation 2004;110:227 3. Onur Nova et al. ROMULO Cardiol. 2020 September 03;5(5):540-548. doi: 10.1001/jamacardio.2020.0013 Current Interpretive Data was last revised on 2023. Non-HDL Cholesterol 70 mg/dL [facility] Comment: Interpretive Data Ages < or = 19 years Acceptable: <120 mg/dL Borderline high: 120-144 mg/dL High: >145 mg/dL Ages > or = 20 years When triglycerides are >200 mg/dL, Non-HDL cholesterol is a secondary target of therapy with treatment goals that are 30 mg/dL greater than the LDL cholesterol target. Literature References: 1. Expert Panel on Integrated Guidelines for Cardiovascular Health and Risk Reduction in Children and Adolescents. Pediatrics 2011;128:S213 2. NCEP Expert Panel. Circulation 2004;110:227 Current Interpretive Data was last revised on 2017. Chol/HDL ratio 2 [facility] Blood 07/03/2024 1:58 PM [facility] 07/03/2024 7:04 PM [facility] Santos Wang MD LAB BLOOD ORDERABLES Fin al Result [facility] [address] [place] [address] * Comprehensive metabolic panel (07/03/2024 1:58 PM [facility]) Sodium 141 135 - 145 mmol/L Potassium, pl 3.9 3.3 - 4.9 mmol/L [facility] Chloride 100 97 - 110 mmol/L [facility] CO2 28 22 - 32 mmol/L [facility] Anion gap 13 2 - 15 mmol/L [facility] BUN 12 6 - 25 mg/dL [facility] Creatinine 0.74 0.60 - 1.10 mg/dL [facility] Glucose 111 70 - 199 mg/dL [facility] Comment: Interpretive Data Fasting glucose >/= 126 mg/dl is diagnostic for diabetes. Fasting is defined as no caloric intake for at least 8 hours. Fasting glucose between 100 mg/dl to 125 mg/dl is diagnostic of prediabetes. In a patient with classic symptoms of hyperglycemia or hyperglycemic crisis, a random glucose >/= 200 mg/dl is diagnostic for diabetes. In the absence of unequivocal hyperglycemia, results should be confirmed by repeat testing. The classification and Diagnosis of Diabetes Diabetes Care 2021; 46: S19-S40. Current interpretive data was last revised 2022. Calcium 9.5 8.5 - 10.3 mg/dL [facility] Bilirubin, total 0.6 0.1 - 1.2 mg/dL [facility] Protein, pl 7.3 6.5 - 8.5 g/dL [facility] Albumin 4.4 3.5 - 5.0 g/dL [facility] Alk phos 66 40 - 130 Units/L [facility] ALT 31 7 - 45 Units/L [facility] AST 40 10 - 45 Units/L [facility] Blood 07/03/2024 1:58 PM [facility] 07/03/2024 7:04 PM [facility] us Santos Wang MD LAB BLOOD ORDERABLES [facility] al Result [facility] [address] [facility] [place] [address] * Screening Mammogram Bilateral W Efrain (03/05/2024 3:36 PM CDT) Anatomical Region Laterality Modality Breast Bilateral Mammography 03/05/2024 8:39 PM CDT Impressions 03/05/2024 8:39 PM CDT There is no mammographic evidence of malignancy. A 1 year screening mammogram is recommended. BI-RADS: 1 - Negative. The patient has been or will be contacted. The patient will be entered into a reminder system with a target due date of 1 year for her next mammogram. Electronically signed by: Laura Maynard M.D. Narrative 03/05/2024 8:39 PM CDT EXAMINATION: SCREENING MAMMOGRAM BILATERAL W EFRAIN ORDERING HEALTHCARE PROVIDER: TRACI RICKS HISTORY: Routine screening mammography. COMPARISON: 01/30/2023,12/22/2021, 10/22/2020, 07/15/2019 TECHNIQUE: CC and MLO views of the bilateral breasts were obtained with digital technique using breast tomosynthesis with C view. Computer aided detection was utilized. FINDINGS: DENSITY: There are scattered areas of fibroglandular density. BREASTS: There are no suspicious masses, suspicious calcifications, or other suspicious findings in either breast. There has been no suspicious interval change. Traci Ricks MD IMG MAMMO PROCEDURES Final Result * Dexa Axial Skeleton Bone Density 1 or 2 Site (07/02/2022 11:02 AM [facility]) Anatomical Region Laterality Modality Body N/A Other 07/02/2022 10:1 1 PM [facility] Narrative 07/02/2022 10:12 PM [facility] EXAM DESCRIPTION: DEXA AXIAL SKELETON BONE DENSITY 1 OR MORE SITES REASON FOR STUDY: 67 y/o year old F with given history of screening. Postmenopausal Development Rep/Model: [employer] SL ([id number]) CLINICAL INFORMATION: Current height: 60 inches Maximum height: 60 inches Weight: 112 pounds Risk factors: Parental hip fracture, postmenopausal COMPARISON: 07/01/2020. FINDINGS: AP LUMBAR SPINE L1-L4: Total BMD is 0.713 g/cm2 T-score is -3.0 Dissimilar scan types or analysis methods precludes assessment for calculating a significant change. LEFT HIP: Total BMD is 0.727 g/cm2 T-score is -1.8 Dissimilar scan types or analysis methods precludes assessment for calculating a significant change. Femoral neck BMD is 0.581 g/cm2 T-score is -2.4 FRAX: FRAX not reported due to T-scores of hip, femoral neck and/or spine being at or below -2.5 (Osteoporosis). IMPRESSION: Based on the lumbar spine bone mineral density (T-score -3.0 ) the patient has osteoporosis . REFERENCE: Bone mineral density: Normal (T-score above or = -1.0) Low bone mass (T-score between -1.0 and -2.5) replaces the previously used term osteopenia Osteoporosis (T-score = or below -2.5) Medical evaluation for secondary causes of low bone mineral density may be appropriate. FRAX is a World Health Organization validated fracture risk assessment tool that calculates a person's 10 year probability of a major osteoporosis related fracture and hip fracture. According to the National Osteoporosis Foundation guidelines, postmenopausal women and men age 50 or older with low bone mass and a 10 year probability of a major osteoporosis related fracture = or greater than 20% or a 10 year probability of a hip fracture = or greater than 3% should be considered for treatment. For further information, including treatment recommendations, please refer to the 2013 ISCD Official Positions (http://www.iscd.org) and the NOF's Clinician's Guide to Prevention and Treatment of Osteoporosis (http://www.nof.org/professionals/clinical-guidelines) THIS IS AN ELECTRONICALLY VERIFIED FINAL REPORT 07/02/2022 10:12 PM - Electronically signed by Al Burr M.D. MF: MEI Report ID: [id number] Reading Location: [place] [address] Procedure Note Al Burr MD - 07/02/2022 EXAM DESCRIPTION: DEXA AXIAL SKELETON BONE DENSITY 1 OR MORE SITES REASON FOR STUDY: 67 y/o year old F with given history ofscreening. Postmenopausal Development Rep/Model: [employer] SL ([id number]) CLINICAL INFORMATION: Current height: 60 inches Maximum height: 60 inches Weight: 112 pounds Risk factors: Parental hip fracture, postmenopausal COMPARISON: 07/01/2020. FINDINGS: AP LUMBAR SPINE L1-L4: Total BMD is 0.713 g/cm2 T-score is -3.0 Dissimilar scan types or analysis methods precludes assessment for calculating a significant change. LEFT HIP: Total BMD is 0.727 g/cm2 T-score is -1.8 Dissimilar scan types or analysis methods precludes assessment for calculating a significant change. Femoral neck BMD is 0.581 g/cm2 T-score is -2.4 FRAX: FRAX not reported due to T-scores of hip, femoral neck and/or spine beingat or below -2.5 (Osteoporosis). IMPRESSION: Based on the lumbar spine bone mineral density (T-score -3.0 ) the patient has osteoporosis . REFERENCE: Bone mineral density: Normal (T-score above or = -1.0) Low bone mass (T-score between -1.0 and -2.5) replaces thepreviously used term osteopenia Osteoporosis (T-score = or below -2.5) Medical evaluation for secondary causes of low bone mineral density may be appropriate. FRAX is a World Health Organization validated fracture risk assessmenttool that calculates a person's 10 year probability of a major osteoporosisrelated fracture and hip fracture. According to the National OsteoporosisFoundation guidelines, postmenopausal women and men age 50 or older with low bonemass and a 10 year probability of a major osteoporosis related fracture = or greater than 20% or a 10 year probability of a hip fracture = or greaterthan 3% should be considered for treatment. For further information, including treatment recommendations, please referto the 2013 ISCD Official Positions (http://www.iscd.org) and the NOF's Clinician's Guide to Prevention and Treatment of Osteoporosis (http://www.nof.org/professionals/clinical-guidelines) THIS IS AN ELECTRONICALLY VERIFIED FINAL REPORT 07/02/2022 10:12 PM - Electronically signed by Al Burr M.D. MF: MEI Report ID: [id number] Reading Location: [place] [address] Traci Ricks MD IMG DXA PROCEDURES Fi nal Result * Hepatitis C antibody (03/20/2017 3:22 PM [facility]) Hep C Ab Negative Negative ILA TOBAR Blood specimen (specimen) 03/20/2017 3:22 PM [facility] 03/20/2017 7:04 PM [facility] us Mary Zavala NP LAB MICROBIOLOGY - GENERAL OR DERABLES Final Result ILA TOBAR [address] Department [place] [address] * COLONOSCOPY IMAGES (05/24/2016) Anatomical Region Laterality Modality Other Narrative 05/24/2016 Ordered by an unspecified provider. us Historical Provider MD PARNELL PROCEDURE ORDERABLES F inal Result from Last 3 Months or Most Recently Relevant to Health Maintenance Insurance [facility] Member Subscriber Plan / Payer (Ef fective 2022-Present) Name:Samanta Reeder Relation to Subscriber:Self Name:Samanta Reeder Payer ID:[id number] (NAIC) Type:MEDICARE RISK OTHER Address: [address] [facility] Care Teams Manager Video Games Relationship Specialty Start Date End Date Santos Wang MD [address] [facility] [address] [place] [address] PCP - General Family Medicine 07/02/24
--- OUTSIDE RECORDS SUMMARY | 2024-08-09 13:23 | XMS_ITS | Referral Summary ---
Author Organization [facility] Address [address] [place] [address] Care Team Providers Care Pot Firer Name Role Phone Santos Wang MD Primary Care Provider + Encounters Date Type Department Care Team Description 08/06/[address] [facility] Primary Care at [address] [phone] Santos Wang MD Appointment Request 07/23/2024 9:30 AM CDT Office Visit [facility] Primary Care at [address] [phone] Santos Wang MD Pre-diabetes (Primary Dx); Benign essential hypertension; Other hyperlipidemia 07/16/[address] [facility] Primary Care at [address] [phone] Radha Gordon MA Numbness (Primary Dx); Chronic neck pain 07/05/2024 Results Follow-Up [facility] Group Primary Care at [address] [phone] Santos Wagn MD 07/03/2024 1:58 PM DIE REPAIR MACHINIST - 07/03/2024 11:59 PM DIE REPAIR MACHINIST Hospital Encounter [address] [address] Annual physical exam; Need for hepatitis B screening test Discharge Disposition: Discharge to home or self care 07/03/2024 2:30 PM DIE REPAIR MACHINIST Lab [facility] Medical [facility] Outpatient Lab at [address] [phone] Screening examination for poliomyelitis [Z11.59] (Primary Dx); Routine general medical examination at a health care facility [Z00.00] 07/03/2024 1:30 PM DIE REPAIR MACHINIST Office Visit [facility] Primary Care at [address] [place] [phone] Santos Wang MD Annual physical exam (Primary Dx); Mixed hyperlipidemia; Benign essential hypertension; Migraine without aura and without status migrainosus, not intractable; Gastroesophageal reflux disease without esophagitis; Irritable bowel syndrome with constipation; Age-related osteoporosis without current pathological fracture; Primary insomnia; Post-menopause; Need for hepatitis B screening test; Chronic prescription opiate use; Chronic joint pain; Myofascial pain syndrome, cervical from Last 3 Months Allergies Active Allergy Reactions Criticality Noted Date [...] tablet (40 mg total) by mouth daily 024 Active polyethylene glycol (MIRALAX) 17 gram/dose bulk [...] MOUTH EVERY DAY 100 tablet Active rizatriptan SENIOR SECURITY ARCHITECT (MAXALT-SENIOR SECURITY ARCHITECT) 10 mg disintegrating tablet Take 1 tablet [...] AT NIGHT FOR SLEEP *04/11/24 30 tablet 025 2024 Discontinued Active Problems Problem Noted Date [...] osteoporosis Assessment & Plan (05/15/2022 9:08 AM DIE REPAIR MACHINIST): Started alendronate in 2020 dexa scan in 2020 showed osteoporosis Migraine without aura and wi thout status migrainosus, not intractable 05/15/2022 Assessment & Plan (07/17/2023 12:28 PM CDT): Continue rizatriptan as needed Assessment & Plan (07/10/2022 8:54 AM DIE REPAIR MACHINIST): Continue rizatriptan as needed Assessment & Plan (05/15/2022 9:10 AM DIE REPAIR MACHINIST): Continue rizatriptan as needed Primary insomnia 05/15/2022 Assessment & Plan (07/18/2023 12:26 PM CDT): stable Continue the ambien 10mg as [place] Assessment & Plan (05/15/2022 9:11 AM DIE REPAIR MACHINIST): stable Continue the ambien 10mg as needed Encounter for wellness examination 05/14/2022 Assessment & Plan (07/18/2023 8:28 AM CDT): Ordered CBC, cmp, lipid, hgb A1c Colonoscopy up to date Mammo up to date F/u in 1 year for annual Assessment & Plan (05/15/2022 9:40 AM DIE REPAIR MACHINIST): Ordered CBC, cmp, lipid, hgb a1c, TSH w/ reflex to t4 Colonoscopy up to date Mammo up to date Zoster vaccine-went to local pharamacy Pneumonia vaccine-will f/u w/ local pharmacy F/u in 1 year for annual Degenerative cervical spinal stenosis 02/26/2019 Degenerative disc disease, cervical 02/26/2019 Cervical radiculopathy 02/26/2019 Assessment & Plan (07/18/2023 8:48 AM CDT): Chronic Worsening Referral to neurosurgery given Cervical disc disorder with radiculopathy of mid-cervical region 02/13/2019 Assessment & Plan (05/15/2022 9:06 AM DIE REPAIR MACHINIST): She follows with pain management They recommended going to a surgeon She is not ready to go to surgery yet Irritable bowel syndrome with constipation 01/26 Assessment & Plan (07/17/2023 12:27 PM CDT): Continue with miralax as needed Assessment & Plan (05/15/2022 9:03 AM DIE REPAIR MACHINIST): Continue with miralax as needed Assessment & [...] greens, fat-free milk, cottage cheese, nuts like [id number], protein bars with 10-15 g of protein [...] 06/21/2017 Assessment & Plan (06/21/2017 1:42 PM DIE REPAIR MACHINIST): EKG done-showed NSR with no signs of [...] pepcid Assessment & Plan (05/14/2022 8:57 PM DIE REPAIR MACHINIST): Stable Continue pepcid Assessment & Plan (06/21/2017 1:45 PM DIE REPAIR MACHINIST): GERD Recommend Weight loss for patients with [...] prn Assessment & Plan (05/29/2018 1:33 PM DIE REPAIR MACHINIST): Will try singular at bedtime. Claritin during the day. She has fluticasone nasal spray. Lung sounds are clear today. She has had bronchitis in the past and I have given her an albuterol inhaler and she states that she cannot afford to buy it. Assessment & Plan (06/06/2017 2:08 PM DIE REPAIR MACHINIST): Constant dripping of clear nasal drainage. Has not seen ent. Will refer to Dr. Mariscal for evaluation. Has tried antihistamines and steroid nasal spray Myofascial pain syndrome, cervical 04/18/2017 Assessment & Plan (04/18/2017 2:25 PM DIE REPAIR MACHINIST): Hx chronic neck pain. Sees pain management. I cannot find a note from them. She is seeing them tomorrow and will ask that they send us office notes. I'd like to get a recheck on c-spine, unless pain management has done it in their office. She had cervical spine surgery in late . Continue skelaxine. She also is on hydrocodone [...] also instructed to reach out to her director regulatory compliance as they prescribe majority of her bp [...] months Assessment & Plan (05/15/2022 9:02 AM DIE REPAIR MACHINIST): Bp in the office today BP Readings [...] months. Assessment & Plan (05/29/2018 1:35 PM DIE REPAIR MACHINIST): Hypertension is labile. Regular aerobic exercise. Medication [...] months. Assessment & Plan (03/20/2017 2:18 PM DIE REPAIR MACHINIST): Hypertension is improving with treatment. Regular aerobic exercise. Continue current medications. Blood pressure will be reassessed 6 months. Hyperlipidemia 08/09/2015 Overview (08/10/2016): Hyperlipidemia Assessment & Plan (07/17/2023 12:24 PM CDT): Stable / clinically quiescent. Will continue to monitor. Continue atorvastatin Assessment & Plan (05/14/2022 8:54 PM DIE REPAIR MACHINIST): Stable / clinically quiescent. Will continue to monitor. Continue atorvastatin Assessment & Plan (11/29/2018 7:43 AM CDT): Lipid abnormalities are improving with treatment. Pharmacotherapy as ordered. Lipids will be reassessed in 6 months. Assessment & Plan (05/29/2018 1:33 PM DIE REPAIR MACHINIST): Lipid abnormalities are improving with treatment. Pharmacotherapy as ordered. Lipids will be reassessed orders for labs. Assessment & Plan (10/29/2017 1:42 PM CDT): Hx hyperlpidemia - due for labs Assessment & Plan (03/20/2017 2:19 PM DIE REPAIR MACHINIST): Stable. Continue current medication. Recheck lipids in [...] Encounter for completion of form with patient 07/10/1901/13/2024 Assessment & Plan (07/10/2022 8:53 AM DIE REPAIR MACHINIST): Forms completed for disability Moderate episode of [...] I talked her about going to [facility] and she was somewhat open to this. [...] cardiology Assessment & Plan (05/15/2022 9:03 AM DIE REPAIR MACHINIST): Continue current regimen Continue following with cardiology [...] 06/21/20172017 Assessment & Plan (06/21/2017 1:40 PM DIE REPAIR MACHINIST): Increase symptoms of indigestion, belching. 10/29/16 upper [...] neuro Assessment & Plan (06/10/2017 7:56 AM DIE REPAIR MACHINIST): Renewed maxalt. Gave fioricet to try for post migraine headache after taking maxalt. cymbalta has not made a difference. Decrease back to 30mg x 5-7 days and then discontinue Assessment & Plan (04/18/2017 2:24 PM DIE REPAIR MACHINIST): I am going to try to increase the cymbalta to 60mg daily. If she still doesn't notice a difference in 6-8 weeks when return, then we'll wean her off and d/c it. She is agreeable to try the increase. Assessment & Plan (03/20/2017 2:06 PM DIE REPAIR MACHINIST): Headaches are worsening. Medication changes per orders. [...] 10/29/2017 Headache 06/12/2013 03/20/2017 Overview (08/10/2016): Headache Immunizations Immunization Administration Dates Next Due Influenza, [...] (Arexvy) 03/25/2023 Tdap 10/24/2019,02/08/2017,02/02/2015 ZOSTER Recombinant 03/24/2022,10/06/2021 Social History Tobacco Use Types Packs/Day Years [...] 10/22/2022 How often do you attend chur or yarsani services? More than 4 times per year 10/22/2022 Do you belong to any clubs o r organizations such as jewish groups, unions, fraternal or athletic groups, or [...] place to sleep or slept in a residential (including now)? No 10/22/2022 Personal Safety Answer Date Recorded Have you ever been in or are you currently in a harmful physical or emotional relationship or is someone making you feel afraid or unsafe? Denies 09/23/2023 Comments No Sex and Gender Information Value Date Recorded Sex Assigned at Not on file Legal Sex Female 3:17 PM DIE REPAIR MACHINIST Gender Identity Not on file Sexual Orientation Not on file Last Filed Vital Signs Vital Sign Reading Time Taken Comments Blood Pressure 114/64 07/23/2024 9:23 AM CDT Pulse 54 07/23/2024 9:23 AM CDT Temperature 36.6 C (97.9 F) 07/03/2024 1:20 PM DIE REPAIR MACHINIST Respiratory Rate 16 01/23/2024 10:39 AM CDT Oxygen Saturation 98% 07/23/2024 9:23 AM CDT Inhaled Oxygen Concentration - - Weight 49.9 kg (110 lb) 07/23/2024 9:23 AM CDT Height 152.4 cm (5') 07/23/2024 9:23 AM CDT Body Mass Index 21.48 07/23/2024 9:23 AM CDT Plan of Treatment Not on file Goals Goal Patient Goal Type Associated Problems Recent Progress Patient-Stated? Author BH-Pain Behavioral Health Improving( 11:33 AM DIE REPAIR MACHINIST) Sara Rodriguez, STACEY Note: Patient will establish a comfort-function goal and identify the pain level that will allow the patient to perform desired activities and achieve an acceptable quality of life. Procedures Procedure Name Priority Date/Time Associated Diagnosis Comments HEPATITIS B SURFACE ANTIBODY (IMMUNE STATUS) Routine 07/03/2024 7:10 PM DIE REPAIR MACHINIST Need for hepatitis B screening test HEPATITIS B SURFACE ANTIGEN Routine 07/03/2024 7:10 PM DIE REPAIR MACHINIST Need for hepatitis B screening test EGFR Routine 07/03/2024 1:58 PM DIE REPAIR MACHINIST Annual physical exam CBC WITHOUT DIFFERENTIAL Routine 07/03/2024 1:58 PM DIE REPAIR MACHINIST Annual physical exam COMPREHENSIVE METABOLIC PANEL Routine 07/03/2024 1:58 PM DIE REPAIR MACHINIST Annual physical exam LIPID PANEL Routine 07/03/2024 1:58 PM DIE REPAIR MACHINIST Annual physical exam THYROID FUNCTION CASCADE Routine 07/03/2024 1:58 PM DIE REPAIR MACHINIST Annual physical exam HEMOGLOBIN A1C Routine 07/03/2024 1:58 PM DIE REPAIR MACHINIST Annual physical exam HEPATITIS B CORE ANTIBODY, TOTAL Routine 07/03/2024 1:58 PM DIE REPAIR MACHINIST Need for hepatitis B screening test SCREENING MAMMOGRAM BILATERAL W EFRAIN Schedule Routine, Read Routine (OP Routine) 03/05/2024 3:36 PM CDT Screening mammogram for breast cancer DEXA AXIAL SKELETON BONE DENSITY 1 OR MORE SITES Schedule Routine, Read Routine (OP Routine) 07/02/2022 11:02 AM DIE REPAIR MACHINIST Other specified disorders of bone density and structure, multiple sites HEPATITIS C ANTIBODY Routine 03/20/2017 3:22 PM DIE REPAIR MACHINIST Encounter for hepatitis C screening test for low risk patient COLONOSCOPY IMAGES 05/24/2016 from Last 3 Months or Most Recently Relevant to Health Maintenance Results * Hepatitis B surface antibody (immune status) Blood (07/03/2024 7:10 PM DIE REPAIR MACHINIST) HBsAb (immune status) Nonreactive Comment: Interpretive Data [...] revised on 19. Blood 07/03/2024 7:10 PM DIE REPAIR MACHINIST 07/03/2024 7:10 PM DIE REPAIR MACHINIST us Santos Wang MD LAB MICROBIOLOGY - GENER AL ORDERABLES Final Result [facility] [address] [place] [address] * Hepatitis B Surface Antigen Blood (07/03/2024 7:10 PM DIE REPAIR MACHINIST) HepBsAg Nonreactive Nonreactive Blood 07/03/2024 7:10 PM DIE REPAIR MACHINIST 07/03/2024 7:10 PM DIE REPAIR MACHINIST Santos Wang MD LAB MICROBIOLOGY - GENER AL ORDERABLES Final Result Performing Organization Address [facility] Co de Phone Number [facility] [address] [place] [address] * eGFR (07/03/2024 1:58 PM DIE REPAIR MACHINIST) eGFR 86 >=60 mL/min/1. 73 m2 Comment: [...] last reviewed 2021. Blood 07/03/2024 1:58 PM DIE REPAIR MACHINIST 07/03/2024 7:09 PM DIE REPAIR MACHINIST Santos Wang MD LAB BLOOD ORDERABLES Fin al Result Performing Organization Address [facility] Co de Phone Number [facility] [address] [place] [address] * Thyroid Function Cable (07/03/2024 1:58 PM DIE REPAIR MACHINIST) TSH 1.22 0.30 - 4.20 mcIUnit/mL Blood 07/03/2024 1:58 PM DIE REPAIR MACHINIST 07/03/2024 7:04 PM DIE REPAIR MACHINIST Santos Wang MD LAB BLOOD ORDERABLES Fin al Result Performing Organization Address [facility]/ZIP Co de Phone Number [facility] [address] [place] [address] * Hepatitis B core antibody, total Blood (07/03/2024 1:58 PM DIE REPAIR MACHINIST) [facility] Hep B core IgG/IgM Nonreactive Nonreactive Comment:Testing performed by : [facility], [address] [place]., [address] Blood 07/03/2024 1:58 PM DIE REPAIR MACHINIST 07/04/2024 12:38 AM DIE REPAIR MACHINIST Santos Wang MD LAB MICROBIOLOGY - GENER AL ORDERABLES Final Result Performing Organization Address [facility] Co de Phone Number [facility] [address] [place] [address] * CBC without differential (07/03/2024 1:58 PM DIE REPAIR MACHINIST) [facility] WBC 8.9 3.8 - 9.9 K/cumm Hgb 13.9 11.9 - 15.5 g/dL [facility] Hct 42.5 35.6 - 45.5 % [facility] Plt 291 150 - 400 K/cumm [facility] MPV 10.9 9.1 - 12.3 fL [facility] RBC 4.65 3.90 - 5.20 M/cumm [facility] MCV 91.4 81.3 - 96.4 fL [facility] MCH 29.9 27.1 - 33.3 pg [facility] MCHC 32.7 32.3 - 35.7 g/dL [facility] RDW CV 12.8 11.1 - 14.9 % [facility] RDW SD 42.8 35.7 - 48.1 fL [facility] NRBC abs 0.00 0.00 - 0.01 K/cumm [facility] Blood 07/03/2024 1:58 PM DIE REPAIR MACHINIST 07/03/2024 7:04 PM DIE REPAIR MACHINIST Santos Wang MD LAB BLOOD ORDERABLES Fin al Result Performing Organization Address [facility] [place] [address] [address] [place] [address] * (ABNORMAL) Hemoglobin A1c (07/03/2024 1:58 PM DIE REPAIR MACHINIST) Hgb A1C 6.3(H) 4.0 - 5.6 % Estimated Average Glucose 134 mg/dL [facility] Comment: The ADA recommends reporting an estimated Average Glucose (eAG) with all Hemoglobin A1c results using the equation derived from a study of 507 normal and diabetic adults. Minority populations were underrepresented and children were not included. (Diabetes Care 31:7160-4938, 2008). The eAG is not equivalent to a fasting glucose. Blood 07/03/2024 1:58 PM DIE REPAIR MACHINIST 07/03/2024 7:04 PM DIE REPAIR MACHINIST Santos Wang MD LAB BLOOD ORDERABLES Fin al Result Performing Organization Address [facility] de Phone Number [facility] [address] [place] [address] * Lipid panel (07/03/2024 1:58 PM DIE REPAIR MACHINIST) Pathologist [facility] Cholesterol 147 30 - 199 mg/dL Comment: [...] on 2017. Triglycerides 59 <=149 mg/dL [facility] Comment: Interpretive Data Ages < or = [...] on 2017. HDL 77 >=40 mg/dL [facility] Comment: Interpretive Data Ages < or = [...] 2017. LDL, calculated 58 <=129 mg/dL [facility] Comment: Interpretive Data Ages < or = 19 years Acceptable: <110 mg/dL Borderline high: 110-129 mg/dL High: >or= 130 mg/dL Ages > or = 20 years Optimal: <100 mg/dL Near optimal: 100-129 mg/dL Borderline high: 130-159 mg/dL High: >160 mg/dL Calculated using the Onur LDL-C estimating equation. This equation was implemented on 2023. Prior to this date LDL-C was estimated using the Friedewald equation. Literature References: 1. Expert Panel on Integrated Guidelines for Cardiovascular Health and Risk Reduction in Children and Adolescents. Pediatrics 2011;128:S213 2. NCEP Expert Panel. Circulation 2004;110:227 3. Onur Bustillos al. ROMULO Cardiol. 2020 September 03;5(5):540-548. doi: 10.1001/jamacardio.2020.0013 Current Interpretive Data was last revised on 2023. Non-HDL Cholesterol 70 mg/dL [facility] Comment: Interpretive Data Ages < or = [...] 2 [facility] Blood 07/03/2024 1:58 PM DIE REPAIR MACHINIST 07/03/2024 7:04 PM DIE REPAIR MACHINIST us Santos Wang MD LAB BLOOD ORDERABLES Fin al Result [facility] [address] [place] [address] * Comprehensive metabolic panel (07/03/2024 1:58 PM DIE REPAIR MACHINIST) Sodium 141 135 - 145 mmol/L Potassium, [...] Units/L [facility] Blood 07/03/2024 1:58 PM DIE REPAIR MACHINIST 07/03/2024 7:04 PM DIE REPAIR MACHINIST us Santos Wang MD LAB BLOOD ORDERABLES Fin al Result [facility] [address] [place] [address] * Screening Mammogram Bilateral W Efrain (03/05/2024 [...] There has been no suspicious interval change. us Traci Ricks MD IMG MAMMO PROCEDURES Final Result * Dexa Axial Skeleton Bone Density 1 or 2 Site (07/02/2022 11:02 AM DIE REPAIR MACHINIST) Anatomical Region Laterality Modality Body N/A Other 07/02/2022 10:1 1 PM DIE REPAIR MACHINIST Narrative 07/02/2022 10:12 PM DIE REPAIR MACHINIST EXAM DESCRIPTION: DEXA AXIAL SKELETON BONE DENSITY 1 OR MORE SITES REASON FOR STUDY: 67 y/o year old F with given history of screening. Postmenopausal Senior Analyst Programmer/Model: [employer] SL (S/N [id number]) CLINICAL INFORMATION: Current height: 60 inches Maximum [...] Al Burr M.D. MF: MEI Report ID: [id number] Reading Location: [address] Note Al Burr MD - 07/02/2022 EXAM DESCRIPTION: DEXA AXIAL SKELETON BONE DENSITY 1 OR MORE SITES REASON FOR STUDY: 67 y/o year old F with given history ofscreening. Postmenopausal Senior Analyst Programmer/Model: [employer] SL (S/N [id number]) CLINICAL INFORMATION: Current height: 60 inches Maximum [...] Al Burr M.D. MF: MEI Report ID: [id number] Reading Location: [place] [address] Traci Ricks MD IMG DXA PROCEDURES Fi nal Result * Hepatitis C antibody (03/20/2017 3:22 PM DIE REPAIR MACHINIST) Hep C Ab Negative Negative [facility] Blood specimen (specimen) 03/20/2017 3:22 PM DIE REPAIR MACHINIST 03/20/2017 7:04 PM DIE REPAIR MACHINIST Mary Zavala NP LAB MICROBIOLOGY - GENERAL OR DERABLES Final Result [facility] [address] [place] [address] * COLONOSCOPY IMAGES (05/24/2016) Anatomical Region Laterality Modality Other Narrative 05/24/2016 Ordered by an unspecified provider. Historical Provider GI PROCEDURE ORDERABLES F inal Result from Last 3 Months or Most Recently Relevant to Health Maintenance Insurance [facility] [place] [address] [place] [address] HEALTHCARE Care Teams Pot Firer Relationship Specialty Start Date End Date Santos Wang MD [address] [facility] [place] [address] [place] [address] PCP - General Family Medicine 07/02/24
== END 2024-08-09 13:18 | disposition home or self-care (01) ==
PROVIDERS: PCP Family Medicine; Visit Provider Neurological Surgery
DX: M54.16 Radiculopathy, lumbar region (principal); M47.816 Spondylosis without myelopathy or radiculopathy, lumbar region; M47.817 Spondylosis without myelopathy or radiculopathy, lumbosacral region
CPT/HCPCS: 72148